=== PATIENT | female | born 2000 | race Two or more races ===

== ENCOUNTER 2022-01-28 17:36 | Inpatient (IN) | payer BC, OTHER ==
[~2022-01-28] VITALS: Ht 165.1 cm; Wt 58.3 kg
[2022-01-28] MEDS ORDERED: SODIUM CHLORIDE 0.9% 1,000 ML IV ONE (18:00)
[2022-01-28] MEDS ORDERED: ONDANSETRON HCL 4 MG/2 ML VIAL IV ONE (18:00)
[2022-01-28 19:14] LABS: Basophils # (auto) 0 10 ^3/uL (0-0.2); Eosinophils # (auto) 0.1 10 ^3/uL (0-0.8); Hemoglobin 7.7 g/dL (12.2-16.2); Mean Corpuscular Hemoglobin 16.4 pg (28.0-32.0); White Blood Cell 2.5 10^3/uL (4.4-10.8)
[2022-01-28 19:16] LABS: Eosinophils % (auto) 3.2 % (0.0-7.0); Lymphocytes # (auto) 1.2 10 ^3/uL (0.4-5.4); Lymphocytes % (auto) 48.7 % (10.0-50.0); Mean Corpuscular Hgb Conc. 28.3 g/dL (32.0-36.0); Monocytes # (auto) 0.4 10 ^3/uL (0-1.3); Monocytes % (auto) 14.9 % (0.0-12.0); Neutrophils # (auto) 0.8 10 ^3/uL (1.6-8.6); Neutrophils % (auto) 32.2 % (37.0-80.0); Nucleated Red Blood Cells % 0.3 %; Red Blood Cells 4.67 10^6/uL (4.0-5.20)
[2022-01-28 19:30] LABS: Albumin 3.4 g/dL (3.4-5.0); BUN/Creatinine Ratio 18.3; Potassium 4.1 mmol/L (3.5-5.1)
[2022-01-28 19:32] LABS: Bilirubin, Total 0.3 mg/dL (0.2-1.0); Total Protein 7.3 g/dL (6.4-8.2)
[2022-01-28] MEDS ORDERED: ALBUTEROL SULF 2.5 MG/0.5ML(0.5%) NEB SOLN NEB ONE (19:45)
[2022-01-28] MEDS ORDERED: LACTATED RINGER'S 1,000 ML IV ONE (19:45)
[2022-01-28 20:41] LABS: Basophils # (auto) 0 10 ^3/uL (0-0.2); Eosinophils # (auto) 0.1 10 ^3/uL (0-0.8); Lymphocytes # (auto) 1.2 10 ^3/uL (0.4-5.4); Monocytes # (auto) 0.4 10 ^3/uL (0-1.3)
[2022-01-28 20:43] LABS: Basophils % (auto) 1.5 % (0.0-2.0); Eosinophils % (auto) 2.5 % (0.0-7.0); Hematocrit 29.1 % (36.0-46.0); Hemoglobin 7.8 g/dL (12.2-16.2); Lymphocytes % (auto) 45.2 % (10.0-50.0); Mean Corpuscular Hemoglobin 16.8 pg (28.0-32.0); Mean Corpuscular Hgb Conc. 26.9 g/dL (32.0-36.0); Mean Corpuscular Volume 62.6 fL (80.0-100.0); Monocytes % (auto) 15.6 % (0.0-12.0); Neutrophils % (auto) 35.2 % (37.0-80.0); Nucleated Red Blood Cells % 0.1 %; Red Blood Cells 4.65 10^6/uL (4.0-5.20); Red Cell Distribution Width 19.9 % (11.8-14.3); White Blood Cell 2.8 10^3/uL (4.4-10.8)
[2022-01-29] MEDS ORDERED: ONDANSETRON ODT 4 MG TAB PO ONE (04:00)
[2022-01-29] MEDS ORDERED: MORPHINE SULFATE 4 MG/ML SYR/VIAL IM ONE (04:00)
[2022-01-29] MEDS ORDERED: ONDANSETRON HCL 4 MG/2 ML VIAL IV PRN (04:15)
[2022-01-29] MEDS ORDERED: TEMAZEPAM 15 MG CAP PO PRN (04:15)
[2022-01-29] MEDS ORDERED: ACETAMINOPHEN 325 MG TAB PO PRN (04:15)
[2022-01-29] MEDS: SODIUM CHLORIDE 0.9% 1,000 ML IV SCH ×3 (04:38→22:23)
[2022-01-29 06:47] LABS: Hematocrit 19.7 % (36.0-46.0)
[2022-01-29 07:00] LABS: Hemoglobin 5.9 g/dL (12.2-16.2)
[2022-01-29 09:00] VITALS: BP 100/65
[2022-01-29] MEDS: PANTOPRAZOLE 40 MG TAB PO SCH (09:32)
[2022-01-29] MEDS: OSELTAMIVIR 75 MG CAP PO SCH ×2 (10:00→21:05)
[2022-01-29 13:00] VITALS: BP 101/64
[2022-01-29] MEDS: FERROUS SULFATE 325mg EC TAB PO SCH (18:15)
[2022-01-29 19:07] LABS: Basophils # (auto) 0 10 ^3/uL (0-0.2); Basophils % (auto) 0.7 % (0.0-2.0); Eosinophils # (auto) 0.1 10 ^3/uL (0-0.8); Lymphocytes # (auto) 1.1 10 ^3/uL (0.4-5.4); Mean Corpuscular Hemoglobin 16.3 pg (28.0-32.0); Mean Corpuscular Volume 56.8 fL (80.0-100.0); Monocytes # (auto) 0.2 10 ^3/uL (0-1.3); Neutrophils # (auto) 0.3 10 ^3/uL (1.6-8.6)
[2022-01-29 19:09] LABS: Eosinophils % (auto) 3.6 % (0.0-7.0); Hematocrit 21.5 % (36.0-46.0); Mean Corpuscular Hgb Conc. 28.8 g/dL (32.0-36.0); Monocytes % (auto) 10.4 % (0.0-12.0); Neutrophils % (auto) 19.1 % (37.0-80.0); Nucleated Red Blood Cells % 0.6 %; Red Blood Cells 3.79 10^6/uL (4.0-5.20); Red Cell Distribution Width 19.9 % (11.8-14.3)
[2022-01-29 19:30] LABS: Urine Bacteria NONE SEEN /hpf (None Seen); Urine Blood Negative /uL (Negative); Urine Specific Gravity 1.006 (1.001-1.035); Urine WBC 1 /hpf (0 - 5)
[2022-01-29] MEDS: SODIUM FERR GLUC 62.5MG/5ML 125 MG in SODIUM CHL 0.9% 100 ML IV SCH (19:31)
[2022-01-29 19:39] LABS: Alcohol, Urine < 3.0 mg/dL (0-10); Amphetamine Screen, Urine NEGATIVE (NEGATIVE); Barbiturate Scree,Urine NEGATIVE (NEGATIVE); Benzodiazephine Screen, Urine NEGATIVE (NEGATIVE); Cannabinoid Screen, Urine NEGATIVE (NEGATIVE); Cocaine Screen, Urine NEGATIVE (NEGATIVE); Opiate Scree,Urine NEGATIVE (NEGATIVE); Phencyclidine Screen, Urine NEGATIVE (NEGATIVE)
[2022-01-29 19:44] LABS: Lymphocytes % (auto) 66.2 % (10.0-50.0)
[2022-01-29 19:47] LABS: Hemoglobin 6.2 g/dL (12.2-16.2); White Blood Cell 1.7 10^3/uL (4.4-10.8)
[2022-01-29 22:00] VITALS: BP 101/56
[2022-01-30 05:00] VITALS: BP 102/69
[2022-01-30 05:58] LABS: Basophils # (auto) 0 10 ^3/uL (0-0.2); Eosinophils # (auto) 0.1 10 ^3/uL (0-0.8); Mean Corpuscular Hemoglobin 16.5 pg (28.0-32.0); Mean Corpuscular Hgb Conc. 28.9 g/dL (32.0-36.0); Monocytes # (auto) 0.2 10 ^3/uL (0-1.3); Red Cell Distribution Width 19.9 % (11.8-14.3); White Blood Cell 2.2 10^3/uL (4.4-10.8)
[2022-01-30 06:02] LABS: Basophils % (auto) 0.6 % (0.0-2.0); Eosinophils % (auto) 3.9 % (0.0-7.0); Hematocrit 22.1 % (36.0-46.0); Lymphocytes # (auto) 1.4 10 ^3/uL (0.4-5.4); Monocytes % (auto) 9.4 % (0.0-12.0); Neutrophils # (auto) 0.5 10 ^3/uL (1.6-8.6); Neutrophils % (auto) 21.2 % (37.0-80.0); Nucleated Red Blood Cells % 0.2 %; Red Blood Cells 3.88 10^6/uL (4.0-5.20)
[2022-01-30 06:42] LABS: Albumin 2.6 g/dL (3.4-5.0); BUN/Creatinine Ratio 4.2; Bilirubin, Total 0.4 mg/dL (0.2-1.0); Calcium 7.6 mg/dL (8.5-10.1); Potassium 3.6 mmol/L (3.5-5.1); Total Protein 5.5 g/dL (6.4-8.2)
[2022-01-30 06:45] LABS: Lymphocytes % (auto) 64.9 % (10.0-50.0)
[2022-01-30 06:47] LABS: Hemoglobin 6.4 g/dL (12.2-16.2)
[2022-01-30 08:33] VITALS: BP 101/64
[2022-01-30] MEDS: FERROUS SULFATE 325mg EC TAB PO SCH (09:55)
[2022-01-30] MEDS: PANTOPRAZOLE 40 MG TAB PO SCH (09:55)
[2022-01-30] MEDS: OSELTAMIVIR 75 MG CAP PO SCH ×2 (09:57→22:00)
[2022-01-30 12:45] VITALS: BP 95/54
[2022-01-30] MEDS: SODIUM FERR GLUC 62.5MG/5ML 125 MG in SODIUM CHL 0.9% 100 ML IV SCH (14:03)
[2022-01-30] MEDS: SODIUM CHLORIDE 0.9% 1,000 ML IV SCH (15:33)
[2022-01-30 16:27] VITALS: BP 106/67
[2022-01-30 22:00] VITALS: BP 101/60
[2022-01-31] MEDS: SODIUM CHLORIDE 0.9% 1,000 ML IV SCH (03:19)
[2022-01-31 05:00] VITALS: BP 106/68
[2022-01-31] MEDS: OSELTAMIVIR 75 MG CAP PO SCH (09:49)
[2022-01-31] MEDS: FERROUS SULFATE 325mg EC TAB PO SCH (09:49)
[2022-01-31] MEDS: PANTOPRAZOLE 40 MG TAB PO SCH (09:49)
[2022-01-31 11:37] LABS: Basophils # (auto) 0 10 ^3/uL (0-0.2); Lymphocytes # (auto) 1.3 10 ^3/uL (0.4-5.4); Mean Corpuscular Hemoglobin 16.5 pg (28.0-32.0); Mean Corpuscular Hgb Conc. 29.2 g/dL (32.0-36.0); Monocytes # (auto) 0.3 10 ^3/uL (0-1.3); Neutrophils # (auto) 1.1 10 ^3/uL (1.6-8.6); White Blood Cell 2.8 10^3/uL (4.4-10.8)
[2022-01-31 11:39] LABS: Basophils % (auto) 0.7 % (0.0-2.0); Eosinophils # (auto) 0.2 10 ^3/uL (0-0.8); Eosinophils % (auto) 6.4 % (0.0-7.0); Hematocrit 22.3 % (36.0-46.0); Mean Corpuscular Volume 56.4 fL (80.0-100.0); Monocytes % (auto) 9.6 % (0.0-12.0); Neutrophils % (auto) 38.3 % (37.0-80.0); Nucleated Red Blood Cells % 0.1 %; Red Blood Cells 3.95 10^6/uL (4.0-5.20); Red Cell Distribution Width 19.8 % (11.8-14.3)
[2022-01-31 11:47] LABS: Hemoglobin 6.5 g/dL (12.2-16.2)
[2022-01-31] MEDS ORDERED: DOCU100T15 PO (12:01)
[2022-01-31] MEDS ORDERED: FERR1TAB36 PO (12:01)
[2022-01-31] MEDS: SODIUM FERR GLUC 62.5MG/5ML 125 MG in SODIUM CHL 0.9% 100 ML IV SCH (12:43)
[2022-01-31 13:00] VITALS: BP 100/62
[2022-01-31] MEDS ORDERED: CALC-239 PO (22:29)
== END 2022-01-31 15:48 | disposition home or self-care (01) | DRG 760 ==
LOC: ER 17:36 → OVERFLOW 01-29 04:12 → WEST WING 01-29 07:44
PROVIDERS: ADMIT Nurse Practitioner; ATTEND Internal Medicine
DX: N92.0 Excessive and frequent menstruation with regular cycle (principal); E87.29 Other acidosis; J10.1 Influenza due to other identified influenza virus with other respiratory manifestations; E86.0 Dehydration; E87.8 Other disorders of electrolyte and fluid balance, not elsewhere classified; I95.9 Hypotension, unspecified; D50.9 Iron deficiency anemia, unspecified; D72.819 Decreased white blood cell count, unspecified; Z20.822 Contact with and (suspected) exposure to COVID-19
CPT/HCPCS: 36415; 71046; 76700; 76856; 80053; 80307; 81001; 81025; 82962; 83605; 85014; 85018; 85025; 86677; 86850; 86900; 86901; 86920; 87426; 87804; 94640; 96361; 96374; G0378; J2405; Q0162